=== PATIENT | male | born 1980 | race American Indian/Alaskan Native ===

== ENCOUNTER 2019-12-04 02:09 | Emergency (ER) | payer SELFPAY ==
[2019-12-04 03:24] LABS: Bilirubin,Urine NEG (Negative); Blood,Urine NEG (Negative); Color,Urine Yellow (Yellow); Mucus,Urine FEW /HPF; Protein,Urine <15 mg/dL mg/dL (Negative); Urobilinogen,Urine < 2.0 mg/dL (<2.0)
[2019-12-04 03:25] LABS: Amphetamine Screen,Urine PRESUMPTIVE NEGATIVE; Benzodiazepines Screen,Urine PRESUMPTIVE NEGATIVE; Cannabinoid Screen,Urine PRESUMPTIVE NEGATIVE; Cocaine Screen,Urine PRESUMPTIVE NEGATIVE; Methadone Screen,Urine PRESUMPTIVE NEGATIVE; Opiate Screen,Urine PRESUMPTIVE NEGATIVE
[2019-12-04 03:35] LABS: Basophils % (Auto) 0.5 % (0.0-1.8); Eosinophils # (Auto) 0.4 K/mm3 (0.0-0.4); Eosinophils % (Auto) 6.6 % (0.0-4.3); Hematocrit 44.6 % (35.5-45.6); Hemoglobin 15.6 gm/dl (11.8-15.2); Lymphocytes # (Auto) 2.8 K/mm3 (1.2-5.4); Lymphocytes % (Auto) 42.2 % (13.4-35.0); Mean Corpuscular HGB Conc 35 % (32-34); Mean Corpuscular Volume 100 fl (84-94); Monocytes # (Auto) 0.1 K/mm3 (0.0-0.8); Monocytes % (Auto) 1.4 % (0.0-7.3); Platelet Count 241 K/mm3 (140-440); Red Blood Count 4.47 M/mm3 (3.65-5.03)
[2019-12-04 03:48] LABS: BUN/Creatinine Ratio 15; Blood Urea Nitrogen 20 mg/dL (9-20); Calcium 9.4 mg/dL (8.4-10.2); Hemolysis Index 9
[2019-12-04 06:44] VITALS: BP 124/77
--- NOTE | 2019-12-04 07:06 | Emergency Department Report ---
ED Alcohol HPI - General Chief Complaint: Medical Clearance Stated Complaint: ALCOHOL Time Seen by Provider: 12/04/19 06:52 Source: patient Mode of arrival: Ambulatory Limitations: No Limitations - History of Present Illness Initial Comments: Patient is 39 years old male with history of chronic alcoholism. Patient presented to the ER asking for medical clearance for alcohol detox program. Patient stated that last drink was last night. Patient stated that he drink daily. Patient had history of previous detox from alcohol. Patient is currently denying any suicidal or homicidal ideation. No visual or auditory hallucination. 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 Alcohol Use: Yes Previous Visits for Alcohol Intoxication?: Yes Recent Trauma: No Associated Symptoms: denies other symptoms Treatments Prior to Arrival: none - Related Data Home Medications Medication Instructions Recorded Confirmed Last Taken No Known Home Medications [No 12/04/19 12/04/19 Unknown Reported Home Medications] Allergies Allergy/AdvReac Type Severity Reaction Status Date / Time No Known Allergies Allergy Unverified 12/04/19 02:21 ED Review of Systems ROS: Stated complaint: ALCOHOL Other details as noted in HPI Comment: All other systems reviewed and negative Constitutional: denies: chills, fever Respiratory: denies: cough, shortness of breath, SOB with exertion, SOB at rest, wheezing Cardiovascular: denies: chest pain, palpitations Gastrointestinal: denies: abdominal pain, nausea, vomiting Musculoskeletal: denies: back pain Neurological: denies: headache, weakness, numbness, paresthesias, confusion, abnormal gait Psychiatric: denies: anxiety, depression, auditory hallucinations, visual tirso lucinations, homicidal thoughts, suicidal thoughts ED Past Medical Hx - Past Medical History Previous Medical History?: No - Surgical History Past Surgical History?: No - Social History Smoking Status: Current Every Day Smoker Substance Use Type: Alcohol - Medications Home Medications: Home Medications Medication Instructions Recorded Confirmed Last Taken Type No Known Home Medications [No 12/04/19 12/04/19 Unknown History Reported Home Medications] ED Physical Exam - General Limitations: No Limitations General appearance: alert, in no apparent distress - Head Head exam: Present: atraumatic, normocephalic, normal inspection - Eye Eye exam: Present: normal appearance, PERRL - ENT ENT exam: Present: normal exam, normal orophraynx, mucous membranes moist - Neck Neck exam: Present: normal inspection, full ROM. Absent: tenderness, meningismus, lymphadenopathy, thyromegaly - Respiratory Respiratory exam: Present: normal lung sounds bilaterally - Cardiovascular Cardiovascular Exam: Present: regular rate, normal rhythm, normal heart sounds - GI/Abdominal GI/Abdominal exam: Present: soft, normal bowel sounds. Absent: distended, tenderness, guarding, rebound, rigid, organomegaly, mass, bruit, pulsatile mass, hernia - Extremities Exam Extremities exam: Present: normal inspection, full ROM, normal capillary refill. Absent: tenderness, pedal edema, joint swelling, calf tenderness - Back Exam Back exam: Present: normal inspection, full ROM. Absent: CVA tenderness (R), CVA tenderness (L), vertebral tenderness - Neurological Exam Neurological exam: Present: alert, oriented X3, CN II-XII intact, normal gait, reflexes normal. Absent: motor sensory deficit - Psychiatric Psychiatric exam: Present: normal mood. Absent: depressed, anxious, flat affect, manic, homicidal ideation, suicidal ideation - Skin Skin exam: Present: warm, intact, normal color ED Course Vital Signs 12/04/19 12/04/19 12/04/19 02:14 06:00 06:35 Temperature 97.9 F 98.1 F Pulse Rate 93 H 90 Respiratory 18 20 20 Rate Blood Pressure 122/75 Blood Pressure 124/77 [Left] O2 Sat by Pulse 97 98 Oximetry ED Medical Decision Making - Lab Data Result diagrams: 12/04/19 02:53 12/04/19 02:53 - Medical Decision Making Patient is 39 years old male with history of chronic alcoholism. Patient presented to the ER asking for medical clearance for alcohol detox program. Patient stated that last drink was last night. Patient stated that he drink daily. Patient had history of previous detox from alcohol. Patient is currently denying any suicidal or homicidal ideation. No visual or auditory hallucination. Patient remained stable in the ER. Patient alcohol level went down to 0.05. Patient is medically clear to be admitted for alcohol detox. Critical care attestation.: If time is entered above; I have spent that time in minutes in the direct care of this critically ill patient, excluding procedure time. ED Disposition Clinical Impression: Alcohol abuse Disposition: DC-01 TO HOME OR SELFCARE Is pt being admited?: No Condition: Stable Instructions: Medical Clearance for Substance Abuse Treatment (ED) Additional Instructions: Patient is medically clear to be admitted to facility for detoxification program. Referrals: PRIMARY CARE, [Primary Care Provider] - 3-5 Days
== END 2019-12-04 12:50 | disposition home or self-care (01) ==
LOC: ED 02:09
DX: F10.129 Alcohol abuse with intoxication, unspecified (principal); F17.200 Nicotine dependence, unspecified, uncomplicated; Z79.899 Other long term (current) drug therapy
CPT/HCPCS: 36415; 80048; 80307; 80320; 81001; 85025; 99283; G0480

== ENCOUNTER 2019-12-04 13:23 | Emergency (ER) | payer SELFPAY ==
[2019-12-04 15:00] LABS: Basophils # (Auto) 0.1 K/mm3 (0.0-0.1); Basophils % (Auto) 1.1 % (0.0-1.8); Eosinophils # (Auto) 0.2 K/mm3 (0.0-0.4); Eosinophils % (Auto) 4.2 % (0.0-4.3); Hematocrit 43.1 % (35.5-45.6); Hemoglobin 15.1 gm/dl (11.8-15.2); Lymphocytes # (Auto) 1.9 K/mm3 (1.2-5.4); Lymphocytes % (Auto) 37.4 % (13.4-35.0); Mean Corpuscular HGB Conc 35 % (32-34); Mean Corpuscular Volume 100 fl (84-94); Monocytes # (Auto) 0.5 K/mm3 (0.0-0.8); Monocytes % (Auto) 10.3 % (0.0-7.3); Platelet Count 224 K/mm3 (140-440); Red Cell Distribution Width 12.9 % (13.2-15.2)
[2019-12-04 15:21] LABS: BUN/Creatinine Ratio 18; Blood Urea Nitrogen 18 mg/dL (9-20); Calcium 9.8 mg/dL (8.4-10.2); Hemolysis Index 10
--- NOTE | 2019-12-04 16:07 | Emergency Department Report ---
<GAVINO HERR - Last Filed: 12/05/19 10:58> ED Psych HPI - General Chief Complaint: Psych Stated Complaint: FEELS SUICIDAL AND HOMICIDAL Time Seen by Provider: 12/04/19 15:44 Source: patient Mode of arrival: Ambulatory Limitations: No Limitations - History of Present Illness Initial Comments: 39-year-old male with a past medical history alcohol abuse presents to the hospital now complaining of homicidal ideation. Patient was seen here earlier today by another provider requesting alcohol detox. Patient was subsequently d ischarged and signed back in 15 minutes with a complaint of homicidal ideation. Patient is from [place] and states he wants to kill somebody specific in [place] and does not want kill anybody here. He denies auditory visual hallucinations or suicidal ideation. When questioned as to why patient did not mention his homicidal ideation earlier he says is probably. He also states that he lives in a sober living house for less than 1 week but got kicked out of the sober living house because he admitted to drinking alcohol. Apparently cannot be readmitted to the program until tomorrow. No physical complaints reported. Denies a history of alcohol withdrawal seizures or tremors or other substance abuse - Related Data Home Medications Medication Instructions Recorded Confirmed Last Taken No Known Home Medications [No 12/04/19 12/04/19 Unknown Reported Home Medications] Allergies Allergy/AdvReac Type Severity Reaction Status Date / Time No Known Allergies Allergy Unverified 12/04/19 02:21 ED Review of Systems Comment: All other systems reviewed and negative ED Past Medical Hx - Past Medical History Previous Medical History?: Yes - Social History Smoking Status: Current Every Day Smoker Substance Use Type: Alcohol - Medications Home Medications: Home Medications Medication Instructions Recorded Confirmed Last Taken Type No Known Home Medications [No 12/04/19 12/04/19 Unknown History Reported Home Medications] ED Physical Exam - General Limitations: No Limitations - Other Other exam information: General: No acute distress Head: Atraumatic Eyes: normal appearance ENT: Moist mucous membranes Neck: Normal appearance, no midline tenderness Chest: Clear to auscultation bilaterally CV: Regular rate and rhythm Abdomen: Soft, normal bowel sounds, nontender, nondistended, no rebound or guarding Back: Normal inspection Extremity: Normal inspection, full range of motion Neuro: Alert O x 3, no facial asymmetry, speech clear, no gross motor sensory deficit, no tremor Psych: Appropriate behavior Skin: No rash ED Medical Decision Making - Lab Data Result diagrams: 12/04/19 14:41 12/04/19 14:41 Critical Care Time: No ED Disposition Clinical Impression: Homicidal ideation Disposition: DC/[place]-65 PSY HOSP/PSY UNIT Condition: Stable Instructions: Suicide Prevention for Adults (ED) <AZEEM PARKER - Last Filed: 12/05/19 12:32> ED Review of Systems ROS: Stated complaint: FEELS SUICIDAL AND HOMICIDAL Other details as noted in HPI ED Course Vital Signs 12/04/19 12/04/19 12/05/19 14:04 19:10 08:15 Temperature 98.0 F 97.8 F 98.0 F Pulse Rate 90 82 63 Respiratory 18 18 20 Rate Blood Pressure 115/65 Blood Pressure 108/65 112/58 [Left] O2 Sat by Pulse 100 100 100 Oximetry ED Medical Decision Making - Lab Data Result diagrams: 12/04/19 14:41 12/04/19 14:41 - Medical Decision Making Patient has been evaluated by our psychiatric team and advised that patient to be discharged home and follow-up as an outpatient with his psychiatric. Patient is currently denying any suicidal or homicidal ideation. I specifically asked the patient if he still having the thoughts of going back to [place] and kill the person he has in his mind he stated no he does not want to do that and he was just feeling hopeless and does not have a place to stay in but he does not have any plan to kill the person. No visual or auditory hallucination. Patient is medically and psychiatrically stable for discharge. Critical care attestation.: If time is entered above; I have spent that time in minutes in the direct care of this critically ill patient, excluding procedure time. ED Disposition Is pt being admited?: No
[2019-12-04 16:08] LABS: Bilirubin,Urine NEG (Negative); Blood,Urine NEG (Negative); Color,Urine Yellow (Yellow); Mucus,Urine FEW /HPF; Protein,Urine <15 mg/dL mg/dL (Negative); Urobilinogen,Urine < 2.0 mg/dL (<2.0); WBC,Urine < 1.0 /HPF (0.0-6.0)
[2019-12-04 16:16] LABS: Amphetamine Screen,Urine PRESUMPTIVE NEGATIVE; Benzodiazepines Screen,Urine PRESUMPTIVE NEGATIVE; Cannabinoid Screen,Urine PRESUMPTIVE NEGATIVE; Cocaine Screen,Urine PRESUMPTIVE NEGATIVE; Methadone Screen,Urine PRESUMPTIVE NEGATIVE; Opiate Screen,Urine PRESUMPTIVE NEGATIVE
[2019-12-05 08:16] VITALS: BP 112/58
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
== END 2019-12-05 12:40 ==
LOC: EEVIPCON 13:23 → ED 13:23
DX: R45.850 Homicidal ideations (principal)
CPT/HCPCS: 36415; 80048; 80307; 80320; 81001; 85025; G0480